=== PATIENT | female | born 1970 | race Caucasian/White ===

== ENCOUNTER → 2021-01-14 | Day surgery (SDC) | payer OTHER ==
[~2021-01-14] VITALS: Ht 161.3 cm; Wt 85.4 kg
[~2021-01-14] MED LIST: AMLODIPINE BESY10 MG PO; ATORVASTATIN CA80 MG PO; CAMILA0.35 MG PO; CYCLOBENZAPRINE10 MG PO; DICLOFENAC SODI75 MG PO; GLYBURIDE5 MG PO; HCTZ25 MG PO; IMITREX50 MG PO; LEVOTHYROXINE75 MC2 PO; LISINOPRIL40 MG PO; LOPID600 MG PO; MIRTAZAPINE15 M1 PO; SYNJARDY 12.5-1 EACH PO
[2021-01-14 06:40] LABS: HCG (URINE) SCREEN NEGATIVE (NEGATIVE)
== END | disposition home or self-care (01) ==
LOC: FAS 06:06
PROVIDERS: Anesthesiology
DX: M16.12 Unilateral primary osteoarthritis, left hip (principal); I10 Essential (primary) hypertension; E78.00 Pure hypercholesterolemia, unspecified; G47.30 Sleep apnea, unspecified; E78.5 Hyperlipidemia, unspecified; E03.9 Hypothyroidism, unspecified
CPT/HCPCS: 76000; 82962; 84703; J1040; J2001; J2250; J2704; J7120; Q9967